=== PATIENT | female | born 1955 | race Caucasian/White ===

== ENCOUNTER → 2024-08-09 | Outpatient (CLI) | payer MEDICARE, OTHER ==
[2024-08-09 12:45] VITALS: BP 148/80; PULSE 68; RESP 18; TEMP 98.4
--- NOTE | 2024-08-09 12:59 | P.GSCN ---
History of Present Illness Consult date: 08/09/24 Reason for Consult: nodule left breast Requesting physician: Rochelle Villalba History of present illness: Brenda is a 69 year old female seen in consultation for Rochelle Villalba regarding a mammogram abnormality in the right breast. She had a bilateral mammogram on 05-16-24 which showed a 5 mm nodule in the right breast and an ultrasound was recommended. This was done on 05-27-24 and nothing of concern was noted. She was told to have a repeat mammogram in one year. This was a routine screening, She has had shooting pain from her nipples into her breast, this is bilateral. She does not have any lumps. She is not complaining of any nipple discharge. She has not had any surgery on her breast. She has not had any recent trauma or infection in her breast. Caffeine: 1 1/2 cups/day nicotine: none chocolate: has been eating dark chocolate lately BCP: IUD, a few years hormones: none Family History: sister: breast cancer mother: cervical cancer maternal grandfather: brain cancer Hormonal History: menarche: 11 A3, breast fed: yes, age at first live : 21 menopause: hysterectomh at 40 prob mid 50's HPV 10 years ago Surgical History: gallbaldder 2 heart abaltions bariatic surgery 2007 hysterectomy Medical History: leaking heart valve hiatal hernia/GERD Social History: nicotine: none alcohol: grew up with alcoholics so attended AA but not an alcoholic not at all now drugs: as a teen marijuana not for 34 years Review of Systems - Constitutional Denies fever, Denies weight loss - EENT Eyes: denies blurred vision Ears: deny: decreased hearing, tinnitus Ears, nose, mouth and throat: Denies dysphagia - Breasts bilateral: as per HPI - Cardiovascular Denies chest pain, Denies shortness of breath - Respiratory Denies cough, Denies 7 - Gastrointestinal Reports as per HPI - Genitourinary Genitourinary: Denies dysuria, Denies hematuria Menstruation: Reports post hysterectomy - Musculoskeletal Reports as per HPI - Integumentary Denies rash, Denies unusual bruising - Neurological Denies headaches, Denies syncope - Psychiatric Reports as per HPI - Endocrine Reports as per HPI - Hematologic/Lymphatic Denies easy bleeding, Denies easy bruising - Allergic/Immunologic Reports seasonal allergies Surgical - Exam - General no distress - Eyes normal ocular movement - Neck trachea midline - Respiratory normal respiratory effort, clear to auscultation - Cardiovascular Rhythm: regular Heart Sounds: normal: S1, S2 - Integumentary normal turgor - Neurologic no disoriented, no combative - Musculoskeletal normal gait - Psychiatric oriented to time, oriented to person, oriented to place, speech is normal, memory intact Breast Exam: BRA: 38DD inspection: Bilateral grade 3 ptosis Right breast: Multi positional exam fibrocystic changes no dominant masses or nodules of concern Right axilla: No adenopathy of concern Left breast: Multi positional exam fibrocystic changes no dominant masses or nodules of concern Left axilla: No adenopathy of concern Results Ramon and ultrasound results reviewed 5 mm area of nodularity seen on radiograph which was not demonstrated on the ultrasound this was considered a BI-RADS 1 and patient to return to normal screening mammogram Assessment and Plan Assessment: Impression: Fibrocystic breast changes Mastodynia possibly related to caffeine/chocolate intake 5 mm area of nodularity left breast not palpable not seen on ultrasound Plan: Left breast ultrasound in 6 months Bilateral mammogram in April 2025 Lifestyle modifications discussed with the patient which may contribute to fi brocystic breast changes Patient to follow-up after left breast ultrasound in 6 months Patient to follow-up sooner any questions or concerns CC: Pia Villalba
== END ==
LOC: WWCWWP 11:41
PROVIDERS: ATTEND Surgery
DX: N60.11 Diffuse cystic mastopathy of right breast (principal); N60.12 Diffuse cystic mastopathy of left breast; Z80.3 Family history of malignant neoplasm of breast

== ENCOUNTER → 2024-11-27 | Outpatient (CLI) | payer MEDICARE, OTHER ==
--- NOTE | 2024-11-27 14:08 | USB ---
Reason for Exam: Follow-up at short interval from prior study. Risk Values: Zoraida 5 year model risk: 1.1%. NCI Lifetime model risk: 3.3%. Technique: Method: Targeted. Findings: The axilla of the left breast and the retroareolar of the left breast were scanned. 2 tiny hypoechoic lesions are noted retroareolar region on the breast measuring 0.4 and 0.3 cm respectively. These appear unchanged relative to outside study. No solid masses are detected. Overall Assessment: Probably benign, BI-RAD 3 Management: Diagnostic Breast Ultrasound of both breasts in 6 months. A clinical breast exam by your physician is recommended on an annual basis and results should be correlated with mammographic findings. This exam should not preclude additional follow-up of suspicious palpable abnormalities. Results were given to the patient verbally at the time of exam. [facility], , 11/27/2024 2:05 PM. Electronically signed and approved by: Chalo Lagos M.D. Radiologis
== END | disposition home or self-care (01) ==
LOC: RADUSWWP 13:37
PROVIDERS: ATTEND Surgery
DX: R92.8 Other abnormal and inconclusive findings on diagnostic imaging of breast (principal)

== ENCOUNTER → 2024-12-05 | Outpatient (CLI) | payer MEDICARE, OTHER ==
[2024-12-05 11:16] VITALS: BP 136/76; PULSE 52; RESP 17; TEMP 97.7
--- NOTE | 2024-12-05 11:44 | P.PN ---
Subjective Progress Note Date: 12/05/24 Reason for Consult: nodule left breast Requesting physician: Rochelle Villalba History of present illness: 08-09-24 Brenda is a 69 year old female seen in consultation for Rochelle Villalba regarding a mammogram abnormality in the right breast. She had a bilateral mammogram on 05-16-24 which showed a 5 mm nodule in the right breast and an ultrasound was recommended. This was done on 05-27-24 and nothing of concern was noted. She was told to have a repeat mammogram in one year. This was a routine screening, She has had shooting pain from her nipples into her breast, this is bilateral. She does not have any lumps. She is not complaining of any nipple discharge. She has not had any surgery on her breast. She has not had any recent trauma or infection in her breast. 12-05-24 ultrasound left breast on 11-27-24 reviewed, two hypoechocic lesions 0.4 and 0.3 cm noted, BIRAD 3 repeat bilateral ultrasound in 6 months due for a bilateral mammogrma in May 2025 ultrasound personally reviewed and interpreted She has stopped her chocolate and the breast pain has stopped. She is not complaining of any new lumps masses or nodules of concern in either breast She has made request to see a gynocologist Caffeine: 1 1/2 cups/day nicotine: none chocolate: has been eating dark chocolate lately BCP: IUD, a few years hormones: none Family History: sister: breast cancer mother: cervical cancer maternal grandfather: brain cancer Hormonal History: menarche: 11 A3, breast fed: yes, age at first live : 21 menopause: hysterectomh at 40 prob mid 50's HPV 10 years ago Surgical History: gallbaldder 2 heart abaltions bariatic surgery 2007 hysterectomy/ still has ovaries Medical History: leaking heart valve hiatal hernia/GERD Social History: nicotine: none alcohol: grew up with alcoholics so attended AA but not an alcoholic not at all now drugs: as a teen marijuana not for 34 years Review of Systems - Constitutional Denies fever, Denies weight loss - EENT Eyes: denies blurred vision Ears: deny: decreased hearing, tinnitus Ears, nose, mouth and throat: Denies dysphagia - Breasts bilateral: as per HPI - Cardiovascular Denies chest pain, Denies shortness of breath - Respiratory Denies cough - Gastrointestinal Reports as per HPI - Genitourinary Genitourinary: Denies dysuria, Denies hematuria Menstruation: Reports post hysterectomy - Musculoskeletal Reports as per HPI - Integumentary Denies rash, Denies unusual bruising - Neurological Denies headaches, Denies syncope - Psychiatric Reports as per HPI - Endocrine Reports as per HPI - Hematologic/Lymphatic Denies easy bleeding, Denies easy bruising - Allergic/Immunologic Reports seasonal allergies Objective - Vital Signs Vital signs: Vital Signs Temp 97.7 F 12/05/24 11:14 Pulse 52 L 12/05/24 11:14 Resp 17 12/05/24 11:14 BP 136/76 12/05/24 11:14 Pulse Ox 98 12/05/24 11:14 FiO2 Intake & Output 12/04/24 12/05/24 12/05/24 18:59 06:59 18:59 Weight 90.718 kg - Constitutional General appearance: Present: cooperative - EENT Eyes: Present: EOMI ENT: Present: hearing grossly normal - Neck Neck: Present: normal ROM - Respiratory Respiratory: bilateral: CTA - Cardiovascular Rhythm: regular Heart sounds: normal: S1, S2 - Integumentary Integumentary: Present: normal turgor - Musculoskeletal Musculoskeletal: Present: gait normal - Psychiatric Psychiatric: Present: A&O x's 3, appropriate affect, intact judgment & insight - Additional findings Additional findings: Breast Exam: BRA: 38DD inspection: Bilateral grade 3 ptosis Right breast: Multi positional exam fibrocystic changes no dominant masses or nodules of concern, ? slight nodularity near aerola nothing to biopsy at this time Right axilla: No adenopathy of concern Left breast: Multi positional exam fibrocystic changes no dominant masses or nodules of concern Left axilla: No adenopathy of concern Assessment and Plan Assessment: Impression: Fibrocystic breast changes Mastodynia possibly related to caffeine/chocolate intake improved she stopped chocolate Plan: bilateral breast ultrasound in 6 months; right breast ultrasound now secondary to nodularity on exam right periaeorlar Bilateral mammogram in April 2025 with appointment Lifestyle modifications discussed with the patient which may contribute to fibrocystic breast changes Patient to follow-up after right breast ultrasound appointment with Dr. Aquino CC: Pia Villalba
== END ==
LOC: WWCWWP 10:55
PROVIDERS: ATTEND Surgery
DX: N60.19 Diffuse cystic mastopathy of unspecified breast (principal)

== ENCOUNTER → 2025-01-03 | Outpatient (CLI) | payer MEDICARE, OTHER ==
--- NOTE | 2025-01-03 08:13 | USB ---
Reason for Exam: Clinical finding. Risk Values: Zoraida 5 year model risk: 1.1%. NCI Lifetime model risk: 3.3%. Technique: Method: Targeted. Findings: The axilla of the right breast and the retroareolar of the right breast were scanned. A US of silicone, retro-areolar region were reviewed. No solid or cystic masses are identified.. Overall Assessment: Incomplete: need additional imaging evaluation, BI-RAD 0 Management: Diagnostic Mammogram of the right breast. A clinical breast exam by your physician is recommended on an annual basis and results should be correlated with mammographic findings. This exam should not preclude additional follow-up of suspicious palpable abnormalities. Results were given to the patient verbally at the time of exam. [facility], , 01/03/2025 8:10 AM. Electronically signed and approved by: Jan Reeves M.D. Radiologis
[2025-01-03 08:39] VITALS: BP 134/60; PULSE 59; RESP 17; TEMP 97.7
--- NOTE | 2025-01-03 08:54 | P.PN ---
Subjective Progress Note Date: 01/03/25 12/05/24 Reason for Consult: nodule left breast Requesting physician: Rochelle Villalba History of present illness: 08-09-24 Brenda is a 69 year old female seen in consultation for Rochelle Villalba regarding a mammogram abnormality in the right breast. She had a bilateral mammogram on 05-16-24 which showed a 5 mm nodule in the right breast and an ultrasound was recommended. This was done on 05-27-24 and nothing of concern was noted. She was told to have a repeat mammogram in one year. This was a routine screening, She has had shooting pain from her nipples into her breast, this is bilateral. She does not have any lumps. She is not complaining of any nipple discharge. She has not had any surgery on her breast. She has not had any recent trauma or infection in her breast. 12-05-24 ultrasound left breast on 11-27-24 reviewed, two hypoechocic lesions 0.4 and 0.3 cm noted, BIRAD 3 repeat bilateral ultrasound in 6 months due for a bilateral mammogrma in May 2025 ultrasound personally reviewed and interpreted She has stopped her chocolate and the breast pain has stopped. She is not complaining of any new lumps masses or nodules of concern in either breast She has made request to see a gynocologist 01-03-25 An ultrasound of the right breast was done on 01-03-25, no specific lesions of concern noted, but recommended diagnostic mammogram of the right breast. This was personally reviewed and discussed with DR. Flaherty from radiology. He recommended bilateral diagnostic mammogram at this time. Caffeine: 1 1/2 cups/day nicotine: none chocolate: has been eating dark chocolate lately BCP: IUD, a few years hormones: none Family History: sister: breast cancer mother: cervical cancer maternal grandfather: brain cancer Hormonal History: menarche: 11 A3, breast fed: yes, age at first live : 21 menopause: hysterectomh at 40 prob mid 50's HPV 10 years ago Surgical History: gallbaldder 2 heart abaltions bariatic surgery 2007 hysterectomy/ still has ovaries Medical History: leaking heart valve hiatal hernia/GERD Social History: nicotine: none alcohol: grew up with alcoholics so attended AA but not an alcoholic not at all now drugs: as a teen marijuana not for 34 years Review of Systems - Constitutional Denies fever, Denies weight loss - EENT Eyes: denies blurred vision Ears: deny: decreased hearing, tinnitus Ears, nose, mouth and throat: Denies dysphagia - Breasts bilateral: as per HPI - Cardiovascular Denies chest pain, Denies shortness of breath - Respiratory Denies cough - Gastrointestinal Reports as per HPI - Genitourinary Genitourinary: Denies dysuria, Denies hematuria Menstruation: Reports post hysterectomy - Musculoskeletal Reports as per HPI - Integumentary Denies rash, Denies unusual bruising - Neurological Denies headaches, Denies syncope - Psychiatric Reports as per HPI - Endocrine Reports as per HPI - Hematologic/Lymphatic Denies easy bleeding, Denies easy bruising - Allergic/Immunologic Reports seasonal allergies Objective - Vital Signs Vital signs: Vital Signs Temp 97.7 F 01/03/25 08:35 Pulse 59 L 01/03/25 08:35 Resp 17 01/03/25 08:35 BP 134/60 01/03/25 08:35 Pulse Ox 99 01/03/25 08:35 FiO2 Intake & Output 01/02/25 01/03/25 01/03/25 18:59 06:59 18:59 Weight 90.718 kg - Constitutional General appearance: Present: cooperative - EENT Eyes: Present: EOMI ENT: Present: hearing grossly normal - Neck Neck: Present: normal ROM - Respiratory Respiratory: bilateral: CTA - Cardiovascular Rhythm: regular Heart sounds: normal: S1, S2 - Integumentary Integumentary: Present: normal turgor - Musculoskeletal Musculoskeletal: Present: gait normal - Psychiatric Psychiatric: Present: A&O x's 3, appropriate affect, intact judgment & insight - Additional findings Additional findings: Breast Exam: BRA: 38DD inspection: Bilateral grade 3 ptosis Right breast: Multi positional exam fibrocystic changes no dominant masses or nodules of concern, ? slight nodularity near aerola nothing to biopsy at this time nothing noted on todays exam Right axilla: No adenopathy of concern Left breast: Multi positional exam fibrocystic changes no dominant masses or nodules of concern Left axilla: No adenopathy of concern Assessment and Plan Assessment: Impression: Fibrocystic breast changes Mastodynia possibly related to caffeine/chocolate intake improved she stopped chocolate right breast ultrasound BIRAD 0 scheduled for bilateral mammogram Plan: left breast ultrasound May 2025 with appointment Bilateral mammogram now with follow up Lifestyle modifications discussed with the patient which may contribute to fibrocystic breast changes Patient to follow-up after bilateral mammogram appointment with Dr. Aquino patient opted to not have this appointment and does not want to see a man; she is going to try to set up an appointment herself CC: Pia Villalba
== END | disposition home or self-care (01) ==
LOC: RADUSWWP 07:47
PROVIDERS: ATTEND Surgery
DX: N63.10 Unspecified lump in the right breast, unspecified quadrant (principal)

== ENCOUNTER → 2025-01-17 | Outpatient (CLI) | payer MEDICARE, OTHER ==
--- NOTE | 2025-01-17 08:04 | MM ---
Reason for Exam: Clinical finding. Last screening mammogram was performed 9 month(s) ago. Patient History: Menarche at age 12. First Full-Term at age 21. Hysterectomy at age 44. Postmenopausal. Sister had breast cancer. Risk Values: Zoraida 5 year model risk: 3.3%. NCI Lifetime model risk: 9.5%. Prior Study Comparison: 05/16/2024 Bilateral Screening Mammogram, Unknown. Tissue Density: There are scattered areas of fibroglandular density. Findings: Analyzed By CAD. There are few scattered and grouped tiny appearing round calcifications right breast redemonstrated. No suspicious new mass or worrisome cluster of microcalcification in either breast. Overall Assessment: Benign, BI-RAD 2 Management: Screening Mammogram of both breasts in 1 year. Manage palpable clinically. Return to routine follow-up. Results were given to the patient verbally at the time of exam. Patient should continue monthly self-breast exams. A clinical breast exam by your physician is recommended on an annual basis. This exam should not preclude additional follow-up of suspicious palpable abnormalities. Note on Zoraida scores and lifetime risk: 1. A Zoraida score greater than 3% is considered moderate risk. If this is the case, consider specialist referral to assess eligibility for a risk reducing agent. 2. If overall lifetime risk for the development of breast cancer is 20% or higher, the patient may qualify for future screening with alternating mammogram and breast MRI. [facility], , 01/17/2025 8:01 AM. Electronically signed and approved by: Alejandro Lynch M.D.
== END | disposition home or self-care (01) ==
LOC: RADMAMWWP 07:31
PROVIDERS: ATTEND Surgery
DX: R92.323 Mammographic fibroglandular density, bilateral breasts (principal); R92.1 Mammographic calcification found on diagnostic imaging of breast; Z78.0 Asymptomatic menopausal state; Z80.3 Family history of malignant neoplasm of breast
CPT/HCPCS: 77066; G0279; 77062

== ENCOUNTER → 2025-01-17 | Outpatient (CLI) | payer MEDICARE, OTHER ==
[2025-01-17 09:22] VITALS: BP 142/85; PULSE 64; RESP 17; TEMP 98.2
--- NOTE | 2025-01-17 10:06 | P.PN ---
Subjective Progress Note Date: 01/17/25 nodule left breast Requesting physician: Rochelle Villalba History of present illness: 08-09-24 Brenda is a 69 year old female seen in consultation for Rochelle Villalba regarding a mammogram abnormality in the right breast. She had a bilateral mammogram on 05-16-24 which showed a 5 mm nodule in the right breast and an ultrasound was recommended. This was done on 05-27-24 and nothing of concern was noted. She was told to have a repeat mammogram in one year. This was a routine screening, She has had shooting pain from her nipples into her breast, this is bilateral. She does not have any lumps. She is not complaining of any nipple discharge. She has not had any surgery on her breast. She has not had any recent trauma or infection in her breast. 12-05-24 ultrasound left breast on 11-27-24 reviewed, two hypoechocic lesions 0.4 and 0.3 cm noted, BIRAD 3 repeat bilateral ultrasound in 6 months due for a bilateral mammogrma in May 2025 ultrasound personally reviewed and interpreted She has stopped her chocolate and the breast pain has stopped. She is not complaining of any new lumps masses or nodules of concern in either breast She has made request to see a gynocologist 01-03-25 An ultrasound of the right breast was done on 01-03-25, no specific lesions of concern noted, but recommended diagnostic mammogram of the right breast. This was personally reviewed and discussed with DR. Flaherty from radiology. He recommended bilateral diagnostic mammogram at this time. 01-17-25 Patient was just seen on 01-03-25 no specific lesions of concern were palpated in her breat on that exam. She was recommended to have a bilateral diagnostic mammogram. This was doen on 01-17-25 which was BIRAD 2. She is not complaining of any new lumps masses or nodules of concern in either breast. At this time she comes today for results of the diagnostic mammogram. This is benign BI-RADS 2 and the recommendation is repeat bilateral mammogram in 1 year. Caffeine: 1 1/2 cups/day nicotine: none chocolate: has been eating dark chocolate lately BCP: IUD, a few years hormones: none Family History: sister: breast cancer mother: cervical cancer maternal grandfather: brain cancer Hormonal History: menarche: 11 A3, breast fed: yes, age at first live : 21 menopause: hysterectomh at 40 prob mid 50's HPV 10 years ago Surgical History: gallbaldder 2 heart abaltions bariatic surgery 2007 hysterectomy/ still has ovaries Medical History: leaking heart valve hiatal hernia/GERD Social History: nicotine: none alcohol: grew up with alcoholics so attended AA but not an alcoholic not at all now drugs: as a teen marijuana not for 34 years Review of Systems - Constitutional Denies fever, Denies weight loss - EENT Eyes: denies blurred vision Ears: deny: decreased hearing, tinnitus Ears, nose, mouth and throat: Denies dysphagia - Breasts bilateral: as per HPI - Cardiovascular Denies chest pain, Denies shortness of breath - Respiratory Denies cough - Gastrointestinal Reports as per HPI - Genitourinary Genitourinary: Denies dysuria, Denies hematuria Menstruation: Reports post hysterectomy - Musculoskeletal Reports as per HPI - Integumentary Denies rash, Denies unusual bruising - Neurological Denies headaches, Denies syncope - Psychiatric Reports as per HPI - Endocrine Reports as per HPI - Hematologic/Lymphatic Denies easy bleeding, Denies easy bruising - Allergic/Immunologic Reports seasonal allergies Objective - Vital Signs Vital signs: Vital Signs Temp 98.2 F 01/17/25 09:19 Pulse 64 01/17/25 09:19 Resp 17 01/17/25 09:19 BP 142/85 01/17/25 09:19 Pulse Ox 98 01/17/25 09:19 FiO2 Intake & Output 01/16/25 01/17/25 01/17/25 18:59 06:59 18:59 Weight 90.718 kg - Constitutional General appearance: Present: cooperative - EENT Eyes: Present: EOMI ENT: Present: hearing grossly normal - Neck Neck: Present: normal ROM - Respiratory Respiratory: bilateral: CTA - Cardiovascular Rhythm: regular Heart sounds: normal: S1, S2 - Integumentary Integumentary: Present: normal turgor - Musculoskeletal Musculoskeletal: Present: gait normal - Psychiatric Psychiatric: Present: A&O x's 3, appropriate affect, intact judgment & insight - Additional findings Additional findings: Breast Exam: BRA: 38DD inspection: Bilateral grade 3 ptosis Right breast: Multi positional exam fibrocystic changes no dominant masses or nodules of concern, ? slight nodularity near aerola nothing to biopsy at this time nothing noted on todays exam Right axilla: No adenopathy of concern Left breast: Multi positional exam fibrocystic changes no dominant masses or nodules of concern Left axilla: No adenopathy of concern Assessment and Plan Assessment: Impression: Fibrocystic breast changes Mastodynia possibly related to caffeine/chocolate intake improved she stopped chocolate right breast ultrasound BIRAD 0 scheduled for bilateral mammogram bilateral mammogram on 01-17-25 BIRAD 2 Plan: bilat. breast ultrasound May 2025 with appointment Bilateral mammogram 1 year Lifestyle modifications discussed with the patient which may contribute to fibrocystic breast changes Patient to follow-up after ultrasound in May 2025, follow up sooner any concerns appointment with Dr. Aquino patient opted to not have this appointment and does not want to see a man; she is going to try to set up an appointment herself CC: Pia Villalba
== END ==
LOC: WWCWWP 08:12
PROVIDERS: ATTEND Surgery
DX: N60.19 Diffuse cystic mastopathy of unspecified breast (principal); N64.4 Mastodynia; N63.20 Unspecified lump in the left breast, unspecified quadrant

== ENCOUNTER → 2025-01-22 | Outpatient (CLI) | payer MEDICARE, OTHER ==
[2025-01-22 14:02] VITALS: BP 134/57; RESP 16; TEMP 98; BMI 36.3
--- NOTE | 2025-01-22 14:51 | P.HPBAR ---
Bariatric H&P - History & Physicial H&P Date: 01/22/25 History & Physicial: Visit/CC: 2006 Sleeve F/U. Pt had at [facility]. Dr. mendes. Patient initial contact: Initial weight: 120.202 kg Initial weight in pounds: 265.00 Height: 5 ft 3 in Initial BMI: 46.9 Last weight: Current weight: 93.157 kg Current weight in pounds: 205.38 Current BMI: 36.3 [place] body weight (based on NIH guidelines): 52.27 kg Excess body weight loss: 39.8% The patient is a 69 year-old F who presents for Bariatric Assessment. She reports right chest pain and breast pain. She has heart trouble and heart doctor wants weight off. Highest 265 pounds. 148 pounds after sleeve 2007. Has sleeve in 2006. 6 years. She was 205.6 pounds. She is a patient of Dr Garcia. Support groups. She drinks of coffee often. Chocolate no more. Coffee. Heart rarte is low. Needs labs. EKG. Heart doctor is Out of [place]. Has heart burn. She has hiatal hernia. NEeds EKG> No gallbladder. Has hysterctomy. Has appendix. Has ovaries. EGD. May need bypass. Colnooscopy done 2 years. History of polyps but not at the last. NO abdominal. Past Medical History History of Any Multi-Drug Resistant Organisms: None Reported Smoking Status: Never smoker Surgical - Exam Vital Signs Temp Pulse Resp BP 98 F 49 L 16 134/57 01/22/25 13:57 01/22/25 13:57 01/22/25 13:57 01/22/25 13:57 Bariatric Checklist Checklist: Plan: Checklist: EGD: 1. Hiatal hernia: 2. H. Pylori: HgbA1c: Vitamin D: Smoking: Primary care physician referral: Dr. Addy Ibarra Psychiatry clearance: Cardiology clearance: Sleep study: Diet journal: VTE risk score: VTE risk level: Rehab needs at discharge:
[2025-01-22 15:07] VITALS: PULSE 77
[2025-01-22 15:46] LABS: INR 0.9 (<1.2); Partial Thromboplastin Time 22.3 sec (22.0-30.0); Prothrombin Time 10.3 sec (10.0-12.5)
[2025-01-22 18:59] LABS: HCT 41.7 % (37.2-46.3); HGB 13.3 g/dL (12.0-15.0); MCHC 31.9 g/dL (32.0-37.0); MCV 87.8 FL (80.0-97.0); Mean Platelet Volume 12.7 FL (9.5-12.2); NRBC Per 100 WBC 0 X 10*3/uL (0.00-0.01); Platelet Count 243 X 10*3/uL (140-440); RBC 4.75 X 10*6/uL (4.10-5.20); RDW 13.8 % (11.5-14.5); WBC 8.45 X 10*3/uL (4.50-10.00)
[2025-01-22 19:11] LABS: Prealbumin 21.9 mg/dL (18.0-42.0)
[2025-01-22 19:27] LABS: % Iron Saturation 7.98 (12.00-45.00); ALT 17 U/L (8-44); AST 20 U/L (13-35); Albumin 4.2 g/dL (3.8-4.9); Albumin/Globulin Ratio 1.45 Ratio (1.60-3.17); Alkaline Phosphatase 170 U/L (41-126); Blood Urea Nitrogen 19.6 mg/dL (9.0-27.0); Calcium 9.4 mg/dL (8.7-10.3); Carbon Dioxide 22.3 mmol/L (21.6-31.8); Chloride 103 mmol/L (96-109); Ferritin 20.9 ng/mL (10.0-291.0); Globulin 2.9 g/dL (1.6-3.3); Glucose 112 mg/dL (70-110); Iron 40 UG/DL (50-170); LDL Cholesterol,Calculated 129.8 mg/dL (0.0-131.0); Magnesium 2.1 mg/dL (1.5-2.4); Phosphorus 2.1 mg/dL (2.4-5.1); Potassium 4.9 mmol/L (3.5-5.5); Sodium 138 mmol/L (135-145); Total Bilirubin <0.2 mg/dL (0.3-1.2); Total Iron Binding Capacity 501 UG/DL (228-460); Total Protein 7.1 g/dL (6.2-8.2)
[2025-01-23 12:28] LABS: Zinc, Serum 69 ug/dL (60-130)
[2025-01-24 06:26] LABS: Vitamin A 54 ug/dL (38-106)
[2025-01-24 22:43] LABS: Selenium 177 mcg/L (63-160)
[2025-01-25 13:21] LABS: Anabasine Urine <2.0 ng/mL (<2.0)
[2025-01-29 12:24] LABS: Vit B1(Thiamine) 69 ug/L (38-122)
== END ==
LOC: BARWHC3 13:46
PROVIDERS: ATTEND Surgery Plastic and Reconstructive Surgery
DX: E66.01 Morbid (severe) obesity due to excess calories (principal); E89.1 Postprocedural hypoinsulinemia; D50.8 Other iron deficiency anemias; E44.0 Moderate protein-calorie malnutrition; K74.1 Hepatic sclerosis; E45 Retarded development following protein-calorie malnutrition; N19 Unspecified kidney failure; T56.894A Toxic effect of other metals, undetermined, initial encounter; E55.9 Vitamin D deficiency, unspecified; R82.5 Elevated urine levels of drugs, medicaments and biological substances; F17.200 Nicotine dependence, unspecified, uncomplicated; K91.2 Postsurgical malabsorption, not elsewhere classified; Z68.36 Body mass index [BMI] 36.0-36.9, adult; Z88.0 Allergy status to penicillin
CPT/HCPCS: 84255; 84134; 84425; 80061; 80053; 82607; 82728; 82525; 82746; 83540; 83550; 83735; 84100; 84590; 84630; 85027; 85610; 85730; 82306; 83970; 80307; 93005; G0480; G0463; 80323; 99202

== ENCOUNTER → 2025-02-26 | Outpatient (CLI) | payer MEDICARE, OTHER ==
--- NOTE | 2025-02-26 15:48 | P.BASOAP ---
Subjective Progress Note Date: 02/26/25 SHe has so much saliva. She has stenosis of the sleeve. She is losing weight. Symptoms are severe for reflux. She is losing weight with her. She wants the bypass. Plan for bypass. EKG reviewed and borderline. Assessment/Plan Plan: Date: Initial Weight: 120.202 kg Initial BMI: Current Weight: Current BMI: Type of Surgery: Total Volume in Band: Previous Volume: Volume Removed: Volume Added: Band Size:
[2025-02-26 16:21] VITALS: BP 121/67; PULSE 76; TEMP 98.2; BMI 35.6
== END ==
LOC: BARWHC3 14:38
PROVIDERS: ATTEND Surgery Plastic and Reconstructive Surgery
DX: E66.01 Morbid (severe) obesity due to excess calories (principal); Z88.0 Allergy status to penicillin; Z68.35 Body mass index [BMI] 35.0-35.9, adult
CPT/HCPCS: 99211

== ENCOUNTER → 2025-03-10 | Outpatient (CLI) | payer MEDICARE, OTHER ==
[2025-03-11 08:35] VITALS: BMI 33.8
== END ==
LOC: BARWHC3 12:48
PROVIDERS: ATTEND Surgery Plastic and Reconstructive Surgery
DX: E66.01 Morbid (severe) obesity due to excess calories (principal); Z71.3 Dietary counseling and surveillance; Z88.0 Allergy status to penicillin
CPT/HCPCS: 97804